=== PATIENT | male | born 1995 | race Hispanic/Latino ===

== ENCOUNTER 2018-08-03 11:07 | Inpatient (IN) | payer BC ==
[~2018-08-03] VITALS: Ht 167.6 cm; Wt 77.6 kg
[2018-08-03] MEDS ORDERED: SODIUM CHLORIDE 0.9% 1000ML 1,000 ML IV STA (11:31)
[2018-08-03] MEDS ORDERED: DONNATAL/LIDOCAINE/MAALOX 30 ML SUSP PO STA (11:31)
[2018-08-03] MEDS ORDERED: ONDANSETRON HCL INJ 2 MG/ML VIAL IV STA (11:31)
[2018-08-03 11:50] LABS: BASOPHILS % 0.3 % (0.0-1.0); EOSINOPHILS % 0.1 % (0.0-6.0); HEMATOCRIT 47.2 % (38.2-49.6); HEMOGLOBIN 16.3 g/dL (14.0-18.0); LYMPHOCYTES # (AUTO) 1.1 (1.0-3.2); LYMPHOCYTES % 10.2 % (18.0-39.1); MEAN CORPUSCULAR HEMOGLOBIN 31.2 pg (28-32); MEAN CORPUSCULAR HGB CONC 34.5 g/dL (31-35); MEAN CORPUSCULAR VOLUME 90.4 fL (81-99); MONOCYTES # (AUTO) 0.6 (0.2-0.8); MONOCYTES % 5.1 % (4.4-11.3); NEUTROPHILS # (AUTO) 9.2 (2.1-6.9); NEUTROPHILS % 83.8 % (38.7-80.0); PLATELET COUNT 339 x10e3/uL (140-360); RED BLOOD COUNT 5.22 x10e6/uL (4.3-5.7); RED CELL DISTRIBUTION WIDTH 11.5 % (11.7-14.4)
[2018-08-03 12:12] LABS: ALANINE AMINOTRANSFERASE 16 IU/L (0-55); ALBUMIN/GLOBULIN RATIO 1.9 (0.8-2.0); ALKALINE PHOSPHATASE 86 IU/L (40-150); AMYLASE 155 U/L (25-125); ANION GAP 16.4 mmol/L (8-16); BLOOD UREA NITROGEN 12 mg/dL (7-26); BUN/CREATININE RATIO 11 (6-25); CALCIUM 10.4 mg/dL (8.4-10.2); CARBON DIOXIDE 26 mmol/L (22-29); CHLORIDE 105 mmol/L (98-107); CREATININE, SERUM 1.05 mg/dL (0.72-1.25); EST GLOMERULAR FILTRATION RATE > 60 ML/MIN (60-); GLUCOSE 122 mg/dL (74-118); LIPASE 270 U/L (8-78); POTASSIUM 4.4 mmol/L (3.5-5.1); SODIUM 143 mmol/L (136-145)
[2018-08-03 12:18] LABS: CLARITY,URINE CLEAR (CLEAR); COLOR,URINE YELLOW (YELLOW)
[2018-08-03 12:19] LABS: BILIRUBIN,URINE NEGATIVE (NEGATIVE); KETONES,URINE NEGATIVE (NEGATIVE); LEUKOCYTE ESTERASE ,URINE NEGATIVE (NEGATIVE); NITRITE,URINE NEGATIVE (NEGATIVE); PROTEIN,URINE DIPSTICK NEGATIVE (NEGATIVE); URINE UROBILINOGEN 0.2 mg/dL (0.2 - 1)
[2018-08-03 12:21] LABS: EPITHELIAL CELLS,URINE RARE /LPF
[2018-08-03] MEDS ORDERED: LIDOCAINE VISC 2% SOLN 15 ML UDC ONE (13:23)
[2018-08-03] MEDS ORDERED: BELLADONNA ALK/PHENOBARBITAL 5 ML UDC ONE (13:23)
[2018-08-03] MEDS ORDERED: MAGNESIUM/ALUMINUM/SIMETHICONE 30 ML UDC ONE (13:24)
--- NOTE | 2018-08-03 13:44 | Diagnostic Imaging Report ---
EXAM: RUQ ULTRASOUND Date: 08/03/2018 11:31 AM Indication: Abdominal pain Comparison: None Technique: Sonographic evaluation of the right upper quadrant. Color doppler was utilized to supplement evaluation. FINDINGS: LIVER: No focal lesion is identified. The liver measures 11.5 cm in the right midclavicular line. Echotexture is normal. BILIARY: No shadowing gallstones identified. No bladder wall 0.3 cm. No sonographic Brady sign reported. The common bile duct measures 0.2 cm. PANCREAS: Obscured by bowel gas. RIGHT KIDNEY: Measures 9.7 cm in length. No hydronephrosis or solid mass lesion identified. PERITONEUM: No free fluid. VASCULATURE: Aorta: Obscured by bowel gas. Interior vena cava: Obscured by bowel gas. Portal Vein: Nondilated with hepatopedal flow. IMPRESSION: Within limitations of overlying bowel gas, no distinct acute findings in the right upper quadrant. Signed by: Dr. Dragan Maloney MD on 08/03/2018 1:41 PM
--- NOTE | 2018-08-03 14:39 | Diagnostic Imaging Report ---
EXAM: XR CHEST 1 VIEW DATE: 08/03/2018 11:33 AM INDICATION: Pain COMPARISON: None FINDINGS: Lines and Tubes: None Heart and Mediastinum: No acute cardiomediastinal findings. Lungs and Pleura: No significant pleural effusion, pneumothorax, or focal consolidation. Bones and Soft Tissues: No acute findings. IMPRESSION: 1. No acute cardiopulmonary findings. Signed by: Dr. Dragan Maloney MD on 08/03/2018 2:36 PM
--- NOTE | 2018-08-03 14:49 | Diagnostic Imaging Report ---
EXAM: CT Abdomen and Pelvis WITH contrast INDICATION: Left upper quadrant pain COMPARISON: 08/03/2018 ultrasound TECHNIQUE: Abdomen and Pelvis was scanned utilizing a multidetector helical scanner after administration of IV contrast. Coronal and sagittal reformations were obtained. IV CONTRAST: 100 mL Isovue-370 COMPLICATIONS: None RADIATION DOSE: Total DLP:262 mGy*cm Estimated effective dose: (DLP x 0.015 x size factor) mSv CTDIvol has been reviewed. It is below the limits set by the Radiation Protocol Committee (RPC). Appropriate CT dose reduction techniques were utilized. FINDINGS: Abdomen: Lung Bases: No acute findings. Solid Organs: Liver, adrenals, kidneys, and spleen are unremarkable except for cyst left kidney. There is ill-defined haziness in the left upper quadrant predominantly around the body and tail of the pancreas. Upper GI Tract: Fluid-filled loops of small bowel, nonobstructed. Vascularity: No aortic aneurysm. No vascular calcifications. Lymph Nodes: No suspicious adenopathy. Other: None. Pelvis: Bladder: Unremarkable. Other: None. Colon: No acute colonic findings. Moderate proximal stool. Appendix not inflamed. Bones: No acute findings. IMPRESSION: 1. Ill-defined inflammatory stranding in the left upper quadrant predominantly around the body and tail of pancreas suggesting pancreatitis. No focal fluid collection identified. Clinical and laboratory correlation recommended. Given close proximity, gastritis not entirely excluded. Signed by: Dr. Dragan Maloney MD on 08/03/2018 2:46 PM
[2018-08-03] MEDS ORDERED: MORPHINE SULFATE INJ 4 MG/ML INJ IV STA (15:37)
[2018-08-03] MEDS ORDERED: MORPHINE SULFATE INJ 4 MG/ML INJ IV PRN (15:45)
[2018-08-03] MEDS ORDERED: MORPHINE SULFATE 2 MG/ML SYR IV PRN (15:45)
--- OUTSIDE RECORDS SUMMARY | 2018-08-03 16:00 | XMS REPORT ---
Author [facility] Address Unknown Phone Unavailable Care Team Providers Care Engineering Associate Name Role Phone Ann HENNING Unavailable Unavailable Problems This patient has no known problems. Allergies, Adverse Reactions, Alerts This patient has no known allergies or adverse reactions. Medications This patient has no known medications. Results Test Description Test Time Test Comments Text Results Atomic Results Result Comments CT ABDOMEN/PELVIS W 2018-08-03 14:42:00 [place] [id number] Patient Name: KERLINE VANESSA MR #: [id number] : 1995 Age/Sex: 22/M Req #: [id number] Adm Physician: Ordered by: ARLINE BEST CABLE LAYER Report #: [id number] Location: ER Room/Bed: Procedure: [id number] CT/CT ABDOMEN/PELVIS W Exam Date: 08/03/18 Exam Time: 1421 REPORT STATUS: Signed EXAM: CT Abdomen and Pelvis WITH contrast INDICATION: Left upper quadrant pain COMPARISON: 08/03/2018 ultrasound TECHNIQUE: Abdomen and Pelvis was scanned utilizing a multidetector helical scanner after administration of IV contrast. Coronal and sagittal reformations were obtained. IV CONTRAST: 100 mL Isovue-370 COMPLICATIONS: None RADIATION DOSE: Total DLP:262 mGy*cm Estimated effective dose: (DLP x 0.015 x size factor) mSv CTDIvol has been reviewed. It is below the limits set by the Radiation Protocol Committee (RPC). Appropriate CT dose reduction techniques were utilized. FINDINGS: Abdomen: Lung Bases: No acute findings. Solid Organs: Liver, adrenals, kidneys, and spleen are unremarkable except for cyst left kidney. There is ill-defined haziness in the left upper quadrant predominantly around the body and tail of the pancreas. Upper GI Tract: Fluid-filled loops of small bowel, nonobstructed. Vascularity: No aortic aneurysm. No vascular calcifications. Lymph Nodes: No suspicious adenopathy. Other: None. Pelvis: Bladder: Unremarkable. Other: None. Colon: No acute colonic findings. Moderate proximal stool. Appendix not inflamed. Bones: No acute findings. IMPRESSION: 1. Ill-defined inflammatory stranding in the left upper quadrant predominantly around the body and tail of pancreas suggesting pancreatitis. No focal fluid collection identified. Clinical and laboratory correlation recommended. Given close proximity, gastritis not entirely excluded. Signed by: Dr. Mookie Maloney MD on 08/03/2018 2:46 PM Dictated By: MOOKIE MALONEY MD 1446 Transcribed By: MERISSA on 08/03/18 1446 COPY TO: ARLINE BEST NP CHEST SINGLE (PORTABLE) 2018-08-03 14:36:00 [place] [address] Patient Name: KERLINE VANESSA JR MR #: [id number] : 1995 Age/Sex: 22/M Req #: [id number] Adm Physician: Ordered by: ARLINE BEST NP Report #: [id number] Location: ER Room/Bed: Procedure: [id number] DX/CHEST SINGLE (PORTABLE) Exam Date: 08/03/18 Exam Time: 1410 REPORT STATUS: Signed EXAM: XR CHEST 1 VIEW DATE: 08/03/2018 11:33 AM INDICATION: Pain COMPARISON: None FINDINGS: Lines and Tubes: None Heart and Mediastinum: No acute cardiomediastinal findings. Lungs and Pleura: No significant pleural effusion, pneumothorax, or focal consolidation. Bones and Soft Tissues: No acute findings. IMPRESSION: 1. No acute cardiopulmonary findings. Signed by: Dr. Mookie Maloney MD on 08/03/2018 2:36 PM Dictated By: MOOKIE MALONEY MD 143 Transcribed By: MERISSA on 08/03/18 1436 COPY TO: ARLINE BEST NP US GALLBLADDER 2018-08-03 13:37:00 [place] [address] Patient Name: KERLINE VANESSA MR #: [id number] : 1995 Age/Sex: 22/M Req #: [id number] Adm Physician: Ordered by: ARLINE BEST CABLE LAYER Report #: [id number] Location: ER Room/Bed: Procedure: [id number] US/US GALLBLADDER Exam Date: 08/03/18 Exam Time: 1215 REPORT STATUS: Signed EXAM: RUQ ULTRASOUND Date: 08/03/2018 11:31 AM Indication: Abdominal pain Comparison: None Technique: Sonographic evaluation of the right upper quadrant. Color doppler was utilized to supplement evaluation. FINDINGS: LIVER: No focal lesion is identified. The liver measures 11.5 cm in the right midclavicular line. Echotexture is normal. BILIARY: No shadowing gallstones identified. No bladder wall 0.3 cm. No sonographic Brady sign reported. The common bile duct measures 0.2 cm. PANCREAS: Obscured by bowel gas. RIGHT KIDNEY: Measures 9.7 cm in length. No hydronephrosis or solid mass lesion identified. PERITONEUM: No free fluid. VASCULATURE: Aorta: Obscured by bowel gas. Interior vena cava: Obscured by bowel gas. Portal Vein: Nondilated with hepatopedal flow. IMPRESSION: Within limitations of overlying bowel gas, no distinct acute findings in the right upper quadrant. Signed by: Dr. Mookie Sanchez MD on 08/03/2018 1:41 PM Dictated By: MOOKIE MALONEY MD 1341 Transcribed By: MERISSA on 08/03/18 1341 COPY TO: ARLINE BEST NP
[2018-08-03] MEDS: SODIUM CHLORIDE 0.9% 1000ML 1,000 ML IV SCH ×2 (16:13→22:26)
[2018-08-03] MEDS: PANTOPRAZOLE 40 MG 10ML VIAL IV SCH (16:13)
[2018-08-03] MEDS: ONDANSETRON HCL INJ 2 MG/ML VIAL IV PRN ×2 (16:13→21:41)
[2018-08-03] MEDS ORDERED: HYDROMORPHONE 2MG/ML 2 MG/ML ML IV ONE (16:45)
[2018-08-03 17:55] LABS: CHOL/HDL RATIO 2.8 (3.9-4.7)
--- NOTE | 2018-08-03 18:34 | Consultation ---
DATE OF CONSULTATION: August 03, 2018 GASTROINTESTINAL CONSULTATION REASON FOR CONSULTATION: Pancreatitis. CHIEF COMPLAINT: Abdominal pain. HISTORY OF PRESENT ILLNESS: The patient is a 22-year-old male with no significant past medical history who presented to the emergency room with reports of epigastric upper abdominal pain that does not radiate to the back that started last night at 1 a.m. The night before he had some wings and bolivian fries. He also reports having 2 episodes of nausea and vomiting. He denies any alcohol abuse or history of using NSAIDs. He denies any fevers or chills. He denies ever having an EGD or colonoscopy in the past. In the ER, the patient was found to have elevated white count. Lipase was elevated to 270, which is 3 times upper normal limit, and CT showed ill-defined inflammatory stranding in the left upper quadrant predominantly around the body and tail of the pancreas suggesting pancreatitis. Given close proximity, gastritis not entirely excluded. The patient is currently on IV fluids, n.p.o. and is being given Protonix. REVIEW OF SYSTEMS: Denies black stools, denies hematemesis, denies shortness of breath, denies chest pain, denied dysuria, hematuria. Denies any fever, headache, sore throat, chest pain or shortness of breath. Denies any cough or chills. All other systems reviewed and are negative. PAST MEDICAL HISTORY: Insignificant for any chronic diseases. PAST SURGICAL HISTORY: Reports tonsillectomy. MEDICATIONS: Reports none. ALLERGIES: NO KNOWN DRUG ALLERGIES. SOCIAL HISTORY: Denies any smoking history, occasional alcohol use. Denies any recreational drug use. FAMILY HISTORY: Denies any significant family medical history. Denies any history of pancreatitis in the family. PHYSICAL EXAMINATION VITAL SIGNS: Temperature 99.2, pulse 71, respiratory rate 18, blood pressure 144/71, pulse oximetry 98%. GENERAL APPEARANCE: Alert and oriented x3, in mild distress. HEENT: Pupils equal, round and reactive to light. Ears normal. NECK: Nontender, supple. HEART: Regular rate and rhythm with no murmurs. RESPIRATORY: Clear to auscultation bilaterally. ABDOMEN: Soft, moderate tenderness in the epigastric periumbilical area. Bowel sounds normal. BACK: No CVA tenderness. SKIN: Warm and dry. EXTREMITIES: No edema and no tenderness, no cyanosis. Normal range of motion. NEUROLOGIC: Oriented x3. No motor deficit. LABS AND IMAGING: Abdominal CT shows ill-defined inflammatory stranding in left upper quadrant predominantly around the body and tail of pancreas suggesting pancreatitis, and given close proximity gastritis not entirely excluded. White count 10.93, hemoglobin 16.3, MCV 90.4, RDW 11.5, platelet count 339,000. Neutrophils 83.8, sodium 143, anion gap 16.4, creatinine 1.05, glucose 122, calcium 10.4, AST 19, ALT 16, amylase 155, lipase 270. Urinalysis within normal limits. ASSESSMENT 1. Epigastric abdominal pain post prandial, most likely secondary to acute pancreatitis, etiology in progress due to elevated white count, lipase 3 times within upper normal limit as shown on CT. 2. Nausea and vomiting. PLAN: 1. Keep n.p.o. 2. IV fluids. 3. Pain management. 4. Antiemetics. 5. Keep monitoring lipase. 6. Lipid panel to rule out hypertriglyceridemia. 7. Agree with PPI b.i.d., anti-GERD measures. 8. Lifestyle modification. 9. Consider outpatient EUS in 1 month Thank you for the consult. We will continue to follow. Job#: [id number] GH MARIA FERNANDA
[2018-08-03] MEDS ORDERED: SODIUM CHLORIDE 0.9% 50ML 50 ML ONE (19:12)
[2018-08-03] MEDS ORDERED: IOPAMIDOL 370 MG/ML 200 ML INFUS..BTL INJ ONE (19:12)
[2018-08-03 20:00] VITALS: BP 119/58
[2018-08-03] MEDS ORDERED: KETOROLAC TROMETHAMINE 30 MG/ML VIAL IV PRN (21:30)
[2018-08-03] MEDS: MORPHINE SULFATE INJ 4 MG/ML INJ IV PRN (21:40)
[2018-08-03] MEDS: ACETAMINOPHEN 1000 MG/100 ML IV PRN (21:40)
[2018-08-03] MEDS: PIPER-TAZ 3.375 GM 50 ML IV SCH (22:26)
[2018-08-04] VITALS (7 sets, daily range): BP systolic 101–128; BP diastolic 45–56
[2018-08-04] MEDS: SODIUM CHLORIDE 0.9% 1000ML 1,000 ML IV SCH ×3 (05:03→20:08)
[2018-08-04] MEDS: PIPER-TAZ 3.375 GM 50 ML IV SCH ×3 (05:03→21:37)
[2018-08-04] MEDS: ACETAMINOPHEN 1000 MG/100 ML IV PRN ×2 (05:04→20:08)
[2018-08-04 06:06] LABS: BASOPHILS % 0.2 % (0.0-1.0); EOSINOPHILS % 0.2 % (0.0-6.0); HEMATOCRIT 41.2 % (38.2-49.6); LYMPHOCYTES # (AUTO) 1.1 (1.0-3.2); LYMPHOCYTES % 9.6 % (18.0-39.1); MEAN CORPUSCULAR VOLUME 91.4 fL (81-99); MONOCYTES # (AUTO) 1.1 (0.2-0.8); MONOCYTES % 9.6 % (4.4-11.3); NEUTROPHILS # (AUTO) 8.7 (2.1-6.9); PLATELET COUNT 261 x10e3/uL (140-360); RED BLOOD COUNT 4.51 x10e6/uL (4.3-5.7); RED CELL DISTRIBUTION WIDTH 11.7 % (11.7-14.4)
[2018-08-04 06:35] LABS: ALANINE AMINOTRANSFERASE 12 IU/L (0-55); ALBUMIN 3.9 g/dL (3.5-5.0); ALBUMIN/GLOBULIN RATIO 1.6 (0.8-2.0); ALKALINE PHOSPHATASE 64 IU/L (40-150); ANION GAP 10.9 mmol/L (8-16); BLOOD UREA NITROGEN 9 mg/dL (7-26); BUN/CREATININE RATIO 9 (6-25); CALCIUM 9.3 mg/dL (8.4-10.2); CARBON DIOXIDE 26 mmol/L (22-29); CHLORIDE 101 mmol/L (98-107); CHOL/HDL RATIO 2.4 (3.9-4.7); CHOLESTEROL 104 MD/DL (0-199); CREATININE, SERUM 1.03 mg/dL (0.72-1.25); EST GLOMERULAR FILTRATION RATE > 60 ML/MIN (60-); GLUCOSE 108 mg/dL (74-118); HDL CHOLESTEROL 44 MG/DL (40-60); LDL CHOLESTEROL 53 MG/DL (60-130); POTASSIUM 3.9 mmol/L (3.5-5.1); SODIUM 134 mmol/L (136-145); TRIGLYCERIDES 33 MG/DL (0-149)
[2018-08-04 06:49] LABS: AMYLASE 76 U/L (25-125); LIPASE 74 U/L (8-78)
[2018-08-04] MEDS: PANTOPRAZOLE 40 MG 10ML VIAL IV SCH ×2 (08:00→16:25)
[2018-08-04] MEDS: ONDANSETRON HCL INJ 2 MG/ML VIAL IV PRN ×3 (08:26→20:08)
[2018-08-04] MEDS: MORPHINE SULFATE INJ 4 MG/ML INJ IV PRN ×3 (08:26→20:09)
[2018-08-04] MEDS: ENOXAPARIN SOD INJ 40 MG/0.4 ML SYR SC SCH (16:25)
[2018-08-05] VITALS (9 sets, daily range): BP systolic 101–132; BP diastolic 50–57
[2018-08-05] MEDS: SODIUM CHLORIDE 0.9% 1000ML 1,000 ML IV SCH ×2 (04:30→09:39)
[2018-08-05 04:55] LABS: BASOPHILS % 0.3 % (0.0-1.0); EOSINOPHILS # (AUTO) 0.1 (0.0-0.4); EOSINOPHILS % 1.1 % (0.0-6.0); HEMATOCRIT 38.4 % (38.2-49.6); HEMOGLOBIN 12.9 g/dL (14.0-18.0); LYMPHOCYTES # (AUTO) 1.3 (1.0-3.2); LYMPHOCYTES % 14.6 % (18.0-39.1); MEAN CORPUSCULAR HEMOGLOBIN 30.9 pg (28-32); MEAN CORPUSCULAR HGB CONC 33.6 g/dL (31-35); MEAN CORPUSCULAR VOLUME 91.9 fL (81-99); MONOCYTES # (AUTO) 0.9 (0.2-0.8); MONOCYTES % 10.2 % (4.4-11.3); NEUTROPHILS # (AUTO) 6.4 (2.1-6.9); NEUTROPHILS % 73.5 % (38.7-80.0); PLATELET COUNT 259 x10e3/uL (140-360); RED BLOOD COUNT 4.18 x10e6/uL (4.3-5.7); RED CELL DISTRIBUTION WIDTH 11.2 % (11.7-14.4)
[2018-08-05 05:20] LABS: ALANINE AMINOTRANSFERASE 12 IU/L (0-55); ALBUMIN 3.5 g/dL (3.5-5.0); ALBUMIN/GLOBULIN RATIO 1.4 (0.8-2.0); ALKALINE PHOSPHATASE 59 IU/L (40-150); ANION GAP 12.6 mmol/L (8-16); BLOOD UREA NITROGEN 9 mg/dL (7-26); BUN/CREATININE RATIO 11 (6-25); CALCIUM 9.1 mg/dL (8.4-10.2); CARBON DIOXIDE 23 mmol/L (22-29); CHLORIDE 103 mmol/L (98-107); CREATININE, SERUM 0.81 mg/dL (0.72-1.25); EST GLOMERULAR FILTRATION RATE > 60 ML/MIN (60-); GLUCOSE 85 mg/dL (74-118); POTASSIUM 3.6 mmol/L (3.5-5.1); SODIUM 135 mmol/L (136-145)
[2018-08-05] MEDS: PIPER-TAZ 3.375 GM 50 ML IV SCH ×3 (05:24→21:14)
[2018-08-05 05:27] LABS: ALBUMIN 3.6 g/dL (3.5-5.0); BILIRUBIN,DIRECT 0.7 mg/dL (0.0-0.5)
[2018-08-05] MEDS: SENNOSIDES 8.6 MG TAB PO SCH ×2 (09:47→17:39)
[2018-08-05] MEDS: PANTOPRAZOLE 40 MG 10ML VIAL IV SCH ×2 (09:47→17:39)
[2018-08-05] MEDS: ENOXAPARIN SOD INJ 40 MG/0.4 ML SYR SC SCH (17:39)
[2018-08-06] VITALS: BP 107/57
[2018-08-06] MEDS: SODIUM CHLORIDE 0.9% 1000ML 1,000 ML IV SCH (01:46)
[2018-08-06 04:00] VITALS: BP 103/56
[2018-08-06 04:45] LABS: BASOPHILS % 0.5 % (0.0-1.0); EOSINOPHILS # (AUTO) 0.2 (0.0-0.4); EOSINOPHILS % 3.9 % (0.0-6.0); HEMATOCRIT 37.3 % (38.2-49.6); HEMOGLOBIN 12.8 g/dL (14.0-18.0); LYMPHOCYTES # (AUTO) 1.9 (1.0-3.2); LYMPHOCYTES % 32.6 % (18.0-39.1); MEAN CORPUSCULAR HEMOGLOBIN 31.2 pg (28-32); MEAN CORPUSCULAR HGB CONC 34.3 g/dL (31-35); MONOCYTES # (AUTO) 0.5 (0.2-0.8); MONOCYTES % 8.9 % (4.4-11.3); NEUTROPHILS # (AUTO) 3.1 (2.1-6.9); NEUTROPHILS % 53.6 % (38.7-80.0); PLATELET COUNT 249 x10e3/uL (140-360); RED CELL DISTRIBUTION WIDTH 11.4 % (11.7-14.4)
[2018-08-06 05:18] LABS: ALANINE AMINOTRANSFERASE 11 IU/L (0-55); ALBUMIN 3.4 g/dL (3.5-5.0); ALBUMIN/GLOBULIN RATIO 1.2 (0.8-2.0); ALKALINE PHOSPHATASE 59 IU/L (40-150); ANION GAP 9.6 mmol/L (8-16); BLOOD UREA NITROGEN 6 mg/dL (7-26); BUN/CREATININE RATIO 7 (6-25); CALCIUM 9.3 mg/dL (8.4-10.2); CARBON DIOXIDE 26 mmol/L (22-29); CHLORIDE 103 mmol/L (98-107); CREATININE, SERUM 0.86 mg/dL (0.72-1.25); EST GLOMERULAR FILTRATION RATE > 60 ML/MIN (60-); GLUCOSE 89 mg/dL (74-118); POTASSIUM 3.6 mmol/L (3.5-5.1); SODIUM 135 mmol/L (136-145)
[2018-08-06] MEDS: PIPER-TAZ 3.375 GM 50 ML IV SCH (05:57)
[2018-08-06 07:40] VITALS: BP 106/57
[2018-08-06] MEDS: PANTOPRAZOLE 40 MG 10ML VIAL IV SCH (08:23)
[2018-08-06] MEDS: SENNOSIDES 8.6 MG TAB PO SCH (08:23)
[2018-08-06 08:24] VITALS: BP 106/57
--- NOTE | 2018-08-06 10:13 | Diagnostic Imaging Report ---
EXAMINATION: MRI Abdomen without contrast/MRCP TECHNIQUE: Multiplanar, multi-sequence MR images of the abdomen were obtained. No intravenous gadolinium was given. CLINICAL HISTORY: Acute pancreatitis, elevated bilirubin, abdominal pain and vomiting COMPARISON: CT abdomen and pelvis with contrast 08/03/2028 FINDINGS: LACK OF GADOLINIUM DECREASES SENSITIVITY FOR DETECTION OF INTRA-ABDOMINAL PATHOLOGY. LOWER THORAX: Mild bilateral lower lobe dependent atelectasis. LIVER: Normal hepatic size and contour. No hepatic signal abnormality. No focal T2 hyperintense hepatic lesions. BILIARY: No intra or extrahepatic biliary ductal dilation. The common bile duct measures 4 mm at the cynthia hepatis and 3 mm at the pancreatic head. Normal luminal contour, with normal tapering to the ampulla. No intraluminal filling defects, strictures or extrinsic compressions. Gallbladder is unremarkable. No stones or sludge. PANCREAS: No focal lesion or ductal dilation. Minimal increased T2 signal adjacent to the pancreatic tail (series 8, image 13), without well-defined fluid collections. SPLEEN: No splenomegaly. ADRENALS: No nodules. KIDNEYS: No hydronephrosis or solid mass in the imaged portion of the kidneys. 1.6 x 1.6 cm T2 hyperintense, T1 hypointense lesion in the mid to inferior left kidney (series 8, image 11), likely representing a simple cyst. PERITONEUM / RETROPERITONEUM: No upper abdominal free fluid. LYMPH NODES: No upper abdominal lymphadenopathy. VESSELS: Normal flow voids are identified. BONES AND SOFT TISSUES: No abnormal bone marrow signal. No soft tissue abnormalities.. IMPRESSION: 1. No intra or extrahepatic biliary ductal dilation. No MR evidence of choledocholithiasis or cholelithiasis. 2. Minimal increased T2 signal adjacent to the pancreatic tail, likely representing minimal peripancreatic inflammatory changes secondary to known pancreatitis. No focal lesion or ductal dilation is identified in this noncontrast exam. Signed by: Dr. Raffy Pizarro M.D. on 08/06/2018 10:10 AM
--- NOTE | 2018-08-06 11:14 | Discharge Summary ---
DESIGN CHIEF: Dr. Bg Gallo FINAL DIAGNOSES 1. Acute pancreatitis associated with abnormal CT scan of the abdomen and pelvis. The pancreatitis is inflammatory stranding in the left upper quadrant predominantly around the body and the tail of the pancreas. 2. Slight elevation of the lipase with normalization now. 3. Slight elevation of liver enzymes with normalization now. 4. Normal lipid panel. SUMMARY: Patient is a 22-year-old male who came in with nausea, vomiting and pain. CT scan showed pancreatitis. Lipase is only slightly elevated, less than 1000. Patient is stable. He was given aggressive IV fluid rehydration. He is doing well now. Pain has subsided. No nausea or vomiting. MRCP was done, pending result. We will obtain result today, and the patient will go home if normal. The patient will need endoscopic ultrasound at a later date. Discussed with the patient at length. Airbrush Artist Technical prior to the patient's discharge. Will give the patient Creon before meals. Nausea with Zofran medication. The patient is stable. Follow up in approximately 1 week with me and in [address] Bg Gallo. Job#: [id number]
== END 2018-08-06 10:57 | disposition home or self-care (01) | DRG 440 ==
LOC: ER 11:07 → ERHOLD 15:34 → MED/SURG2 18:44
PROVIDERS: ADMIT Internal Medicine; ATTEND Internal Medicine
DX: K85.00 Idiopathic acute pancreatitis without necrosis or infection (principal)
CPT/HCPCS: 36415; 71045; 74177; 74181; 76705; 80053; 80061; 80076; 81001; 82150; 83690; 85025; 93005; 96361; 99284; J1650; J1885; J2270; J2405; J2543; J7030; Q9967